=== PATIENT | female | born 1935 | race Caucasian/White ===

== ENCOUNTER 2017-11-10 15:22 | Outpatient (CLI) | payer MEDICARE, OTHER | END 2017-11-10 15:23 | disposition home or self-care (01) | LOC: BICMAMMO 15:22 | PROVIDERS: ATTEND Obstetrics & Gynecology | DX: Z12.31 Encounter for screening mammogram for malignant neoplasm of breast (principal); R92.1 Mammographic calcification found on diagnostic imaging of breast | CPT/HCPCS: 77063; 77067 ==

== ENCOUNTER 2020-11-07 20:31 | Emergency (ER) | payer MEDICARE ==
--- NOTE | 2020-11-07 21:16 | RAD ---
EXAM: Two views chest PROVIDED CLINICAL HISTORY: Dizziness. COMPARISON: 07/15/2015 FINDINGS: Cardiac silhouette is borderline enlarged. The pulmonary vasculature is within normal limits. A few c alcified granulomata are seen in the left midlung zone. Lungs are otherwise clear. No consolidation or pleural fluid is seen. Degenerative changes are seen in the thoracic and visualized upper lumbar s pine. Right convex rotoscoliosis lumbar spine is present. Vascular calcifications are seen in the thoracic and visualized upper abdominal aorta as well as in the region of the splenic artery. IMPRESSION: 1. No acute cardiopulmonary process. 2. Borderline cardiomegaly..
[2020-11-07 21:33] LABS: #Basophils 0.1 thou/uL (0.0-0.2); #Eosinphils 0.3 thou/uL (0.0-0.7); #Lymphocytes 2.1 thou/uL (1.20-3.40); #Monocytes 0.7 thou/uL (0.11-0.59); #Neutrophils 3.4 thou/uL (1.40-6.50); %Basophils 1.4 % (0.0-1.0); %Eosinophils 4.9 % (0.0-10.0); %Lymphocytes 31.8 % (21.0-51.0); %Monocytes 10.3 % (0.0-10.0); %Neutrophils 51.7 % (42.0-75.0); Hemoglobin 11.3 g/dL (12.0-16.0); Mean Corpuscular Hemoglobin 33.9 pg (27.0-31.0); Mean Platelet Volume 8.2 fL (7.4-10.4); Platelet Count 219 thou/uL (130-400); RBC Distribution Width 11.6 % (11.5-14.5); Red Blood Cell (RBC) Count 3.33 mill/uL (4.20-5.40); White Blood Cell (WBC) Count 6.7 thou/uL (4.8-10.8)
[2020-11-07 21:52] LABS: ALT (SGPT) 31 U/L (8-55); AST (SGOT) 32 U/L (5-34); Albumin 4.1 g/dL (3.4-4.8); Alkaline Phosphatase 70 U/L (40-110); Anion Gap 14 mmol/L (10-20); BUN (Urea Nitrogen) 22 mg/dL (9.8-20.1); Bilirubin, Total 0.4 mg/dL (0.2-1.2); CK (CPK) 157 U/L (29-168); Calc. Creatinine Clearance 0 mL/min (70-130); Calcium 9.6 mg/dL (7.8-10.44); Carbon Dioxide 22 mmol/L (23-31); Chloride 97 mmol/L (98-107); Globulin 2.3 g/dL (2.4-3.5); Glucose 119 mg/dL (83-110); Potassium 4.5 mmol/L (3.5-5.1); Protein, Total 6.4 g/dL (5.8-8.1); Sodium 128 mmol/L (136-145)
[2020-11-07] MEDS ORDERED: cloNIDine 0.1 MG TAB ONE (23:29)
--- NOTE | 2020-11-10 21:19 | EKG ---
Test Reason : DIZZINESS Blood Pressure : / mmHG Vent. Rate : 059 BPM Atrial Rate : 059 BPM P-R Int : 256 ms QRS Dur : 086 ms QT Int : 380 ms P-R-T Axes : 087 -09 014 degrees QTc Int : 376 ms Sinus bradycardia with 1st degree A-V block Septal infarct , age undetermined Abnormal ECG Confirmed by TINA DHALIWAL ([id number]), news video editor JODY BORRERO ([id number]) on 11/10/2020 9:19:20 PM Referred By: [facility] Confirmed By:TINA DHALIWAL
== END 2020-11-08 00:38 | disposition home or self-care (01) ==
LOC: ERS 20:31
DX: E86.0 Dehydration (principal); I10 Essential (primary) hypertension; I48.91 Unspecified atrial fibrillation; E03.9 Hypothyroidism, unspecified
CPT/HCPCS: 36415; 71046; 80053; 82550; 84484; 85025; 93005; 94760

== ENCOUNTER 2020-11-14 10:14 | Outpatient (CLI) | payer MEDICARE ==
--- NOTE | 2020-11-14 12:13 | RAD ---
RIGHT FOREARM 2 VIEWS: HISTORY: Arm pain. FINDINGS: No fracture. No acute osseous abnormality. IMPRESSION: No acute finding. POS: OFF
== END 2020-11-14 10:15 | disposition home or self-care (01) ==
LOC: BICRAD 10:14
PROVIDERS: ATTEND Family Medicine
DX: M79.601 Pain in right arm (principal)

== ENCOUNTER 2021-11-25 14:20 | Outpatient (CLI) | payer MEDICARE | END 2021-11-25 14:21 | disposition home or self-care (01) | LOC: BICMAMMO 14:20 | PROVIDERS: ATTEND Advanced Practice Midwife | DX: Z13.820 Encounter for screening for osteoporosis (principal); N95.9 Unspecified menopausal and perimenopausal disorder; M85.852 Other specified disorders of bone density and structure, left thigh; M85.851 Other specified disorders of bone density and structure, right thigh | CPT/HCPCS: 77063; 77067; 77080 ==

== ENCOUNTER 2023-12-03 13:55 | Outpatient (CLI) | payer MEDICARE | END 2023-12-03 13:56 | disposition home or self-care (01) | LOC: ULT 13:55 | PROVIDERS: ATTEND Family Medicine | DX: I65.22 Occlusion and stenosis of left carotid artery (principal); R93.89 Abnormal findings on diagnostic imaging of other specified body structures | CPT/HCPCS: 93880 ==